=== PATIENT | male | born 1950 | race Asian ===

== ENCOUNTER 2016-11-17 10:37 | Emergency (ER) | payer MEDICARE, OTHER ==
[~2016-11-17] VITALS: Ht 182.9 cm; Wt 109.0 kg
[2016-11-17 11:04] VITALS: BP 149/93
[2016-11-17] MEDS ORDERED: BENAZEPRIL 20MG TABLET PO ONE (11:30)
[2016-11-17] MEDS ORDERED: BENAZEPRIL 20MG TABLET PO NR (12:30)
== END 2016-11-17 12:13 | disposition home or self-care (01) ==
LOC: ER 12:10
DX: R06.02 Shortness of breath (principal)
CPT/HCPCS: 99282